=== PATIENT | male | born 1980 | race Hispanic/Latino ===

== ENCOUNTER 2017-05-17 06:04 | Emergency (ER) | payer OTHER, SELFPAY ==
[~2017-05-17] VITALS: Ht 180.3 cm; Wt 127.7 kg
[~2017-05-17 06:04] MED LIST: PROT1TAB2 PO; RANI15TA PO; SUCR1TA PO
[2017-05-17] MEDS ORDERED: IBUPROFEN 600 MG TAB PO ONE (06:45)
[2017-05-17 07:44] VITALS: BP 122/68
--- NOTE | 2017-05-17 07:47 | REP ---
Clinical: Trauma. Fall. Technique: Internal rotation, external rotation, and Y view. Findings: Acromioclavicular and glenohumeral joints are intact and there is no evidence for acute fracture or dislocation. Mild cortical irregularity at the acromioclavicular joint suggests age-related degenerative change. Surrounding soft tissues are normal. Impression: No acute fracture dislocation. Signed by Reji Navarro MD 05/17/2017 07:38 A
== END 2017-05-17 07:45 | disposition home or self-care (01) ==
LOC: M ED 06:04
DX: S43.401A Unspecified sprain of right shoulder joint, initial encounter (principal); J02.9 Acute pharyngitis, unspecified; B34.9 Viral infection, unspecified; W06.XXXA Fall from bed, initial encounter; Y92.9 Unspecified place or not applicable; Y93.9 Activity, unspecified; Y99.9 Unspecified external cause status; J45.909 Unspecified asthma, uncomplicated; Z91.013 Allergy to seafood